=== PATIENT | female | born 1940 | race Caucasian/White ===

== ENCOUNTER 2022-04-16 13:23 | Inpatient (IN) ==
[2022-04-16] MEDS ORDERED: ONDANSETRON 4 MG/2 ML VIAL IV STA (17:31)
[2022-04-16] MEDS ORDERED: HYDROmorphone 1 MG/1 ML SYRINGE IV STA (17:31)
[2022-04-16] MEDS ORDERED: SODIUM CHLORIDE 0.9% 1,000 ML IV STA (17:31)
[2022-04-16 18:14] LABS: Basophils % 0.3 % (0.0-0.8); Eosinophils % 0.3 % (0.00-10.9); Hematocrit 32.9 VOL% (35.7-47.0); Hemoglobin 10.9 GM/DL (12.0-16.0); Immature Granulocytes % 0.7 %; Immature Granulocytes Absolute 0.08 #; Lymphocytes # 0.8 10*3/uL (1.4-4.0); Lymphocytes % 6.7 % (21.3-54.2); Mean Corpuscular HGB Conc 33.1 GM/DL (32-36); Mean Corpuscular Volume 93.2 FL (87-102); Mean Platelet Volume 9.3 FL (9.6-12.0); Monocytes % 8.6 % (1.7-12.7); Neutrophils % 83.4 % (38.7-73.9); Platelet Count 164 T/CUMM (130-400); Red Blood Count 3.53 MC/CUMM (3.8-5.5); Red Cell Distribution Width 13.2 % (9.3-17.3); White Blood Count 11.7 T/CUMM (4-12)
[2022-04-16] MEDS ORDERED: fentaNYL 100 MCG/2 ML VIAL IV STA (18:20)
[2022-04-16 18:25] LABS: PT Patient Result 10.8 SECS (10.1-12.1); Partial Thromboplastin Time 25.6 SECS (23.7-32.9)
[2022-04-16 18:31] LABS: Calcium 8.2 MG/DL (8.5-10.1); Osmolality,Calculated 289.6 MOS/KG (273-304); Potassium 3.4 MMOL/L (3.5-5.1)
[2022-04-16] MEDS ORDERED: GLUCAGON 1 MG VIAL IM PRN (19:29)
[2022-04-16] MEDS ORDERED: MAGNESIUM SULF RIDER 4 GM/100 ML PREMIX IV PRN (19:29)
[2022-04-16] MEDS ORDERED: ACETAMINOPHEN 325 MG TABLET PO PRN (19:29)
[2022-04-16] MEDS ORDERED: MAGNESIUM SULF RIDER 2 GM/50 ML PREMIX IV PRN (19:29)
[2022-04-16] MEDS ORDERED: SIMETHICONE CHEW 125 MG TABLET PO PRN (19:29)
[2022-04-16] MEDS ORDERED: ONDANSETRON 4 MG/2 ML VIAL IV PRN (19:29)
[2022-04-16] MEDS ORDERED: DEXTROSE 10% 250 ML BAG IV PRN (20:16)
[2022-04-16] MEDS: ENOXAPARIN 40 MG/0.4 ML SYRINGE SUBCUT SCH (21:30)
[2022-04-16] MEDS: LACTATED RINGERS 1,000 ML IV SCH (21:30)
[2022-04-16] MEDS ORDERED: HYDROmorphone 1 MG/1 ML SYRINGE IV PRN (21:50)
[2022-04-17] MEDS: DOCUSATE SODIUM 100 MG CAPSULE PO SCH ×3 (00:37→21:35)
[2022-04-17] MEDS: HYDROmorphone 1 MG/1 ML SYRINGE IV PRN ×3 (03:32→17:32)
[2022-04-17 05:25] LABS: Basophils % 0.4 % (0.0-0.8); Eosinophils # 0.1 10*3/uL (0.0-0.87); Eosinophils % 0.6 % (0.00-10.9); Hematocrit 32.4 VOL% (35.7-47.0); Hemoglobin 10.8 GM/DL (12.0-16.0); Immature Granulocytes % 0.6 %; Immature Granulocytes Absolute 0.06 #; Lymphocytes % 10.3 % (21.3-54.2); Mean Corpuscular HGB Conc 33.3 GM/DL (32-36); Mean Corpuscular Volume 92.8 FL (87-102); Monocytes # 0.6 10*3/uL (0.11-0.8); Monocytes % 6.7 % (1.7-12.7); Neutrophils % 81.4 % (38.7-73.9); Platelet Count 165 T/CUMM (130-400); Red Blood Count 3.49 MC/CUMM (3.8-5.5); Red Cell Distribution Width 13.1 % (9.3-17.3); White Blood Count 9.3 T/CUMM (4-12)
[2022-04-17 05:35] LABS: PT Patient Result 10.8 SECS (10.1-12.1); Partial Thromboplastin Time 27.3 SECS (23.7-32.9)
[2022-04-17 06:00] LABS: Ferritin 67.9 ng/mL (8-252)
[2022-04-17 06:05] LABS: Calcium 8.3 MG/DL (8.5-10.1); Osmolality,Calculated 279.3 MOS/KG (273-304); Potassium 3.3 MMOL/L (3.5-5.1); Thyroid Stimulating Hormone 0.355 uIU/ml (0.358-3.74)
[2022-04-17] MEDS: LEVOTHYROXINE 100 MCG TABLET PO SCH (06:28)
[2022-04-17] MEDS ORDERED: POTASSIUM CHLORIDE 20 MEQ TABLET PO PRN (06:53)
[2022-04-17] MEDS ORDERED: oxyCODONE/ACETAMINOPHEN 5-325 MG TABLET PO PRN (09:01)
[2022-04-17] MEDS: amLODIPine 5 MG TABLET PO SCH (09:01)
[2022-04-17] MEDS: PANTOPRAZOLE 40 MG TABLET PO SCH (10:10)
[2022-04-17] MEDS ORDERED: propofoL 200 MG/20 ML VIAL IV ONE (13:26)
[2022-04-17] MEDS ORDERED: ONDANSETRON 4 MG/2 ML VIAL ONE (13:26)
[2022-04-17] MEDS ORDERED: LIDOCAINE 2% 5 ML VIAL ONE (13:26)
[2022-04-17] MEDS ORDERED: KETAMINE 500 MG/10 ML VIAL ONE (13:27)
[2022-04-17] MEDS ORDERED: fentaNYL 100 MCG/2 ML VIAL ONE (13:27)
[2022-04-17] MEDS ORDERED: LACTATED RINGERS 1,000 ML IV SCH (14:30)
[2022-04-17] MEDS ORDERED: PHENYLEPHRINE 1 MG/10 ML SYRINGE IV ONE (15:19)
[2022-04-17] MEDS ORDERED: ROCURONIUM 50 MG/5 ML VIAL IV ONE (15:19)
[2022-04-17] MEDS ORDERED: SEVOFLURANE 1 UNIT/15 MINUTE INH ONE (15:19)
[2022-04-17] MEDS ORDERED: ETOMIDATE 40 MG/20 ML VIAL IV ONE (15:19)
[2022-04-17] MEDS ORDERED: ceFAZolin 1,000 MG VIAL ONE (15:42)
[2022-04-17] MEDS ORDERED: NEOSTIGMINE 10 MG/10 ML VIAL ONE (16:10)
[2022-04-17] MEDS ORDERED: GLYCOPYRROLATE 0.4 MG/2 ML VIAL ONE (16:10)
[2022-04-17] MEDS: LACTATED RINGERS 1,000 ML IV SCH (16:30)
[2022-04-17] MEDS ORDERED: MEPERIDINE 25 MG/1 ML VIAL ONE (16:40)
[2022-04-17] MEDS ORDERED: HYDROmorphone 1 MG/1 ML SYRINGE IV PRN (16:42)
[2022-04-17] MEDS ORDERED: MEPERIDINE 25 MG/1 ML VIAL IV PRN (16:42)
[2022-04-17] MEDS ORDERED: ONDANSETRON 4 MG/2 ML VIAL IV PRN (16:42)
[2022-04-17] MEDS: ENOXAPARIN 40 MG/0.4 ML SYRINGE SUBCUT SCH (21:35)
[2022-04-18 05:05] LABS: Basophils % 0.2 % (0.0-0.8); Eosinophils # 0.1 10*3/uL (0.0-0.87); Eosinophils % 1.1 % (0.00-10.9); Hematocrit 32.5 VOL% (35.7-47.0); Hemoglobin 10.6 GM/DL (12.0-16.0); Immature Granulocytes % 0.7 %; Immature Granulocytes Absolute 0.06 #; Lymphocytes # 0.8 10*3/uL (1.4-4.0); Lymphocytes % 8.5 % (21.3-54.2); Mean Corpuscular HGB Conc 32.6 GM/DL (32-36); Mean Corpuscular Volume 93.4 FL (87-102); Mean Platelet Volume 9.9 FL (9.6-12.0); Monocytes # 0.8 10*3/uL (0.11-0.8); Monocytes % 8.2 % (1.7-12.7); Neutrophils % 81.3 % (38.7-73.9); Platelet Count 138 T/CUMM (130-400); Red Blood Count 3.48 MC/CUMM (3.8-5.5); Red Cell Distribution Width 12.9 % (9.3-17.3); White Blood Count 9.2 T/CUMM (4-12)
[2022-04-18 05:07] LABS: Hematocrit 32.1 VOL% (35.7-47.0); Hemoglobin 10.7 GM/DL (12.0-16.0)
[2022-04-18] MEDS: LEVOTHYROXINE 100 MCG TABLET PO SCH (05:15)
[2022-04-18 05:20] LABS: Osmolality,Calculated 277.3 MOS/KG (273-304); Potassium 3.3 MMOL/L (3.5-5.1)
[2022-04-18] MEDS: CALCIUM (CARBONATE)/VITAMIN D 600 MG-400 UNIT TABLET PO SCH (07:53)
[2022-04-18] MEDS: PANTOPRAZOLE 40 MG TABLET PO SCH (08:00)
[2022-04-18] MEDS: DOCUSATE SODIUM 100 MG CAPSULE PO SCH ×2 (08:00→21:33)
[2022-04-18] MEDS ORDERED: POTASSIUM CHLORIDE 20 MEQ TABLET PO ONE (08:00)
[2022-04-18] MEDS: amLODIPine 5 MG TABLET PO SCH (08:00)
[2022-04-18] MEDS: LACTATED RINGERS 1,000 ML IV SCH ×2 (08:06→22:35)
[2022-04-18] MEDS: oxyCODONE/ACETAMINOPHEN 5-325 MG TABLET PO PRN (12:25)
[2022-04-18] MEDS: ENOXAPARIN 40 MG/0.4 ML SYRINGE SUBCUT SCH (21:33)
[2022-04-19] MEDS: oxyCODONE/ACETAMINOPHEN 5-325 MG TABLET PO PRN (04:24)
[2022-04-19] MEDS: LEVOTHYROXINE 100 MCG TABLET PO SCH (05:56)
[2022-04-19 07:56] LABS: Basophils % 0.5 % (0.0-0.8); Eosinophils # 0.2 10*3/uL (0.0-0.87); Eosinophils % 2.8 % (0.00-10.9); Hematocrit 30.6 VOL% (35.7-47.0); Hemoglobin 10.2 GM/DL (12.0-16.0); Immature Granulocytes % 0.9 %; Immature Granulocytes Absolute 0.07 #; Lymphocytes # 0.8 10*3/uL (1.4-4.0); Lymphocytes % 9.7 % (21.3-54.2); Mean Corpuscular HGB Conc 33.3 GM/DL (32-36); Mean Corpuscular Volume 92.7 FL (87-102); Mean Platelet Volume 9.6 FL (9.6-12.0); Monocytes # 0.8 10*3/uL (0.11-0.8); Monocytes % 10.5 % (1.7-12.7); Neutrophils % 75.6 % (38.7-73.9); Platelet Count 141 T/CUMM (130-400); Red Cell Distribution Width 13.1 % (9.3-17.3); White Blood Count 7.9 T/CUMM (4-12)
[2022-04-19 08:10] LABS: Calcium 8.7 MG/DL (8.5-10.1); Osmolality,Calculated 278.3 MOS/KG (273-304); Potassium 3.6 MMOL/L (3.5-5.1)
[2022-04-19] MEDS: amLODIPine 5 MG TABLET PO SCH (08:16)
[2022-04-19] MEDS: PANTOPRAZOLE 40 MG TABLET PO SCH (08:16)
[2022-04-19] MEDS: DOCUSATE SODIUM 100 MG CAPSULE PO SCH (08:16)
[2022-04-19] MEDS: CALCIUM (CARBONATE)/VITAMIN D 600 MG-400 UNIT TABLET PO SCH (08:16)
[2022-04-19 08:43] VITALS: BP 127/67
[2022-04-19] MEDS ORDERED: CHOLECALCIFEROL 1,000 UNIT TABLET PO SCH (09:00)
== END 2022-04-19 11:49 | DRG 482 ==
LOC: N.ED 13:23 → N.EDINP 19:29 → N.3E 23:46
PROVIDERS: ADMIT Internal Medicine; ATTEND Internal Medicine